=== PATIENT | female | born 1960 | race Caucasian/White ===

== ENCOUNTER 2016-10-06 16:22 | Emergency (ER) | payer MEDICARE, MEDICAID | END 2016-10-06 17:58 | disposition home or self-care (01) | LOC: FASTR 16:22 ==

== ENCOUNTER 2016-10-07 10:45 | Emergency (ER) | payer MEDICARE, MEDICAID | END 2016-10-07 12:18 | disposition home or self-care (01) | LOC: FASTR 10:45 ==